=== PATIENT | male | born 1965 | race Caucasian/White ===

== ENCOUNTER → 2020-04-17 17:10 | Outpatient (CLI) | payer MEDICAID, SELFPAY ==
[2020-04-17 17:31] LABS: Basophils % 0.2 % (0.1-2.0); Eosinophils # 0.2 K/mm3 (0.0-0.4); Eosinophils % 1.6 % (0.1-12.0); Hematocrit 50.9 % (42.0-52.0); Hemoglobin 16.3 g/dL (14.1-18.0); Lymphocytes # 1.8 K/mm3 (0.7-4.5); Lymphocytes % 17.1 % (10-50); Mean Corpuscular Hemoglobin 29.6 pg (27.0-31.2); Mean Corpuscular Volume 92.6 fl (80-94); Mean Platelet Volume 8.3 fl (7.4-10.4); Monocytes # 0.7 K/mm3 (0.1-1.0); Monocytes % 6.9 % (1.7-9.3); Neutrophils % 74.2 % (37.0-80.0); Platelet Count 408 K/mm3 (142-424); Red Cell Distribution Width 13.1 % (11.5-17.5); White Blood Count 10.8 K/mm3 (4.8-10.8)
[2020-04-17 17:51] LABS: Chloride 101 mmol/L (98-107)
[2020-04-17 17:52] LABS: Potassium 4.3 mmoL/L (3.5-5.1); Sodium 138 mmol/L (136-145)
[2020-04-17 17:54] LABS: Alanine Aminotransferase 55 U/L (12-78); Alkaline Phosphatase 64 U/L (38-126); Aspartate Amino Transferase 42 U/L (17-59); Bilirubin,Total 0.4 mg/dl (0.2-1.3); Blood Urea Nitrogen 18 mg/dl (9-20); Estimated Glomerular Filt Rate 88 ml/min (>60); GFR (African American) 107 ML/MIN (>60)
[2020-04-17 17:55] LABS: Albumin Level 4.8 g/dl (3.5-5.0); Albumin/Globulin Ratio 1.5 (1.1-1.8); Anion Gap 16.3 mEq/L (5-15); Calcium 10.5 mg/dl (8.4-10.2); Carbon Dioxide 25 mmol/L (22.0-30.0); Globulin 3.1 g/dL (1.3-3.2); Glucose 104 mg/dl (74-100); Total Protein,Serum 7.9 g/dl (6.3-8.2)
== END ==
PROVIDERS: Visit Provider Family Medicine
DX: I10 Essential (primary) hypertension (principal)
CPT/HCPCS: 80053; 85025

== ENCOUNTER → 2021-06-09 10:02 | Outpatient (CLI) | payer OTHER, SELFPAY | PROVIDERS: PCP Family Medicine; Visit Provider Nurse Practitioner | DX: U07.1 COVID-19 (principal) | CPT/HCPCS: C9803; U0003; U0005 ==

== ENCOUNTER → 2022-07-15 11:00 | Outpatient (CLI) | payer OTHER, SELFPAY ==
[2022-07-15 15:05] LABS: Uric Acid 8.6 mg/dl (3.5-8.5)
== END ==
PROVIDERS: PCP Family Medicine; Visit Provider Family Medicine
DX: Z87.828 Personal history of other (healed) physical injury and trauma (principal); E79.0 Hyperuricemia without signs of inflammatory arthritis and tophaceous disease
CPT/HCPCS: 84550

== ENCOUNTER 2024-05-21 12:22 | Outpatient (CLI) | payer SELFPAY ==
[2024-05-21 19:05] LABS: Alanine Aminotransferase 38 U/L (12-78); Albumin Level 4.6 g/dl (3.5-5.0); Albumin/Globulin Ratio 1.8 (1.1-1.8); Alkaline Phosphatase 68 U/L (38-126); Aspartate Amino Transferase 36 U/L (17-59); Bilirubin,Total 0.7 mg/dl (0.2-1.3); Blood Urea Nitrogen 16 mg/dl (9-20); Calcium 9.9 mg/dl (8.4-10.2); Carbon Dioxide 26 mmol/L (22.0-30.0); Chloride 103 mmol/L (98-107); Chol/HDL Ratio 4.2 (1-3.5); Cholesterol 168 mg/dl (140-200); Estimated Glomerular Filt Rate 87 ml/min (>60); GFR (African American) 105 ML/MIN (>60); Globulin 2.6 g/dL (1.3-3.2); Glucose 97 mg/dl (74-100); HDL Cholesterol 40 mg/dl (40-60); Sodium 140 mmol/L (136-145); Total Protein,Serum 7.2 g/dl (6.3-8.2); Triglycerides 129 mg/dl (30-150); VLDL Cholesterol 26 mg/dL (0-40)
[2024-05-21 19:22] LABS: Direct LDL Cholesterol 107.81 mg/dL (100-129)
== END 2024-05-21 23:59 | disposition home or self-care (01) ==
LOC: LAB.DROPOF 05-22 08:47
PROVIDERS: PCP Family Medicine; Visit Provider Family Medicine
DX: I10 Essential (primary) hypertension (principal); M10.9 Gout, unspecified
CPT/HCPCS: 80053; 80061

== ENCOUNTER 2025-04-26 09:44 | Outpatient (CLI) | payer OTHER, SELFPAY ==
--- OUTSIDE RECORDS SUMMARY | 2018-12-01 08:51 | XMS_ITS | Continuity of Care Document ---
Author Organization [facility] Address [address] [place] [address] Phone Care Team Providers Care Thermostat Mechanic Name Role Phone Lisa Page PT Unavailable Unavailable Medications Medication Instructions Dosage Effective Dates (start - stop) Status Comments diclofenac sodium 75 mg tablet,delayed release take 1 tablet by oral route 2 times every day 75 MG - Active Pennsaid 20 mg/gram/actuation (2 %) topical soln in metered-dose pump apply 2 pump by topical route 2 times every day to the affected knee(s) 40 MG - Active Procedures Procedure Date Office/outpatient visit,est, mod 2018 Physical Tx excercises, ea 15 min Neuromuscular re-edu, ea15 min Physical Tx excercises, ea 15 min Neuromuscular re-edu, ea15 min Physical Tx excercises, ea 15 min Neuromuscular re-edu, ea15 min Physical Tx excercises, ea 15 min Neuromuscular re-edu, ea15 min Office/outpatient visit,est, mod 2018 Physical Tx excercises, ea 15 min Neuromuscular re-edu, ea15 min Physical Tx excercises, ea 15 min Neuromuscular re-edu, ea15 min Physical Tx excercises, ea 15 min Neuromuscular re-edu, ea15 min Physical Tx excercises, ea 15 min Neuromuscular re-edu, ea15 min 19 PT EVAL LOW COMPLEX 20 MIN Neuromuscular re-edu, ea15 min 19 DRAIN/INJ JOINT/BURSA W/US Dexamethasone sodium phos Office/outpatient visit,est, mod 2018 Ko elas w/ condyle pads & paulie MRI Lwr Ext Joint wo Contrast 9 Office/outpatient visit,new, [facility] 2018 X-ray exam of knee, 3 views Advance Directives Directive Yes / No Effective Date File Name No Information Encounters Encounter Description Practice Location Reason(s) For Visit Diagnoses Date Provider Providers Copied on Encounter [facility], [facility] [place], [place], [facility], tel:[phone] [facility] No Information 9 Camilo Gonzalez. [address], [place], [id number] , [place]. tel:[phone] Office/outpat ient visit,[facility], [facility], [facility] [place], [place], [facility], tel:[phone] [facility] No Information 9 Verona De Jesus. [address] [place], [place], [id number] . tel:[phone] [facility], [address] [place] [address], [facility], tel:[phone] [facility] No Information 9 Linwood Lisa. [address], [place], [id number] , [place]. tel:[phone] Referring Provider: Nael Rice, [facility] [place], [address] . tel:[phone] [facility], [address] [place] [address], [facility], tel:[phone] [facility] No Information 9 Camilochristina Beattyisten. [address], [facility] [place] [id number] , [place]. tel:[phone] Referring Provider: Neal Rice, [address], [place], [address] . tel:[phone] [facility], [address], [place], [place], [facility], [place] tel:[phone] [facility] No Information 9 Camilo Isabelen. [address], [facility] [place] [id number] , [place]. tel:[phone] Referring Provider: Neal Rice, [address], [facility] [place], [address] . tel:[phone] [facility], [address], [place], [place], [facility], [place] tel:[phone] [facility] No Information 9 Camilo Isabelen. [address], [facility] [place], [id number] , [place]. tel:[phone] Referring Provider: Neal Rice, [address], [facility] [place], [address] . tel:[phone] Office/outpat ient visit,est, mod [facility], [address], [place], [place], [facility], [place] tel:[phone] [facility] No Information 9 Verona De Jesus. [address], [facility], [place], [id number] . tel:[phone] [facility], [address], [place], [place], [facility], [place] tel:[phone] [facility] No Information 9 Camilo Lisa. [address], [place], [place], [id number] , [place]. tel: [phone] Referring Provider: Neal Rice, [address], [place], [address] . tel:[phone] [facility], [address], [place], [address], [place] tel:[phone] [facility] No Information Sep-0 9-201 9 Camilo Lisa. [address], [facility] [place] [id number] , [place]. tel:[phone] Referring Provider: Neal Rice, [address], [place], [address] . tel:[phone] [facility], [address], [place], [address], [place] tel:[phone] [facility] No Information Sep-0 4-201 9 Camilo Lisa. [address], [facility] [place] [id number] , [place]. tel:[phone] Referring Provider: Neal Rice, [address], [place], [address] . tel:[phone] [facility], [address], [place], [address], [place] tel:[phone] [facility] No Information Sep-0 2-201 9 Linwood Lisa. [address], [facility] [place] [id number] , [place]. tel:[phone] Referring Provider: Neal Rhoades Krystal, [address], [place], [address] . tel:[phone] [facility], [address], [place], [address], [place] tel:[phone] [facility] No Information Aug-2 5-201 9 Camilo Lisa. [address], [facility] [place] [id number] , [place]. tel:[phone] Referring Provider: Neal Rice, [address], [place], [address] . tel:[phone] [facility], [address], [place], [address], [place] tel:[phone] [facility] No Information 9 Verona Neal. [address], [facility] [place], [id number] . tel:[phone] [facility], [facility] [address], [place], [address], [place] tel:[phone] [facility] No Information 9 Fernanda Patricia. [address] [facility], [facility], [place], [place], [id number] , [place]. tel:[phone] Office/outpat ient visit,est, mod [facility], [facility] [address], [place], [place], [facility], tel:[phone] [facility] No Information 0 9 Verona Neal. [address], [facility] [place], [id number] . tel:[phone] [facility], [facility] [address], [place], [place], [facility], tel:[phone] [facility] No Information 9 Verona Neal. [address], [place], [place], [id number] . tel:[phone] [facility], [facility] [address], [place], [place], [facility], [place] tel:[phone] [facility] No Information 9 Verona Neal. [address], [facility] [place], [address] . tel:[phone] Referring Provider: Neal Rice, [address], [facility] [place], [address] . tel:[phone] Office/outpat ient visit,new, mod [facility], [address] [place], [address], [place] tel:[phone] [facility] No Information 9 Verona De Jesus. [address] [facility] [place], [place], [id number] . tel:[phone] Referring Provider: Parish Winslow, [facility] [address] , [place], [address] . tel:[phone] Family History Family Member Type Diagnosis Age At Onset No Information Payers Payer name Insurance type Covered alliance party ID Authoriza tion(s) [facility] [facility] [id number] Social History Type Description Quantity Date Captured Comments Sex Male Smoking Status No Information Chief Complaint And Reason For Visit No Information Reason For Referral Reason For Referral No Information Plan Of Treatment Date Type Action Status Future Order: Radiology Order MR I Knee WO Contrast ([id number]), Collected on: , Sent on: Sent History Of Present Illness Encounter Date Complaint History Of Prese nt Illness No Information Functional Status Date Functional Assessmen t No Information Instructions Date Instruction Additional Infor mation No Information Assessments Type Assessment Date No Information Patient Care Teams Name Effective Dates (start - stop) Status Members No Information
[2025-04-26 14:39] LABS: Hematocrit 43.4 % (42.0-52.0); Hemoglobin 14.1 g/dL (14.1-18.0); Immature Granulocytes % 0.4 %; Mean Corpuscular HGB Conc 32.5 g/dL (31.8-35.4); Mean Corpuscular Hemoglobin 29.6 pg (27.0-31.2); Mean Corpuscular Volume 91.2 fl (80-94); Nucleated Red Blood Cells % 0 %; Platelet Count 362 K/mm3 (142-424); Red Blood Count 4.76 M/mm3 (4.60-6.20); Red Cell Distribution Width-SD 43.1 fL; White Blood Count 9.1 K/mm3 (4.8-10.8)
[2025-04-26 14:57] LABS: Hemoglobin A1C 6.8 % (4.0-6.0)
[2025-04-26 15:51] LABS: Albumin Level 4.9 g/dl (3.5-5.0); Chloride 104 mmol/L (98-107); Potassium 4.0 mmoL/L (3.5-5.1); Sodium 136 mmol/L (136-145)
[2025-04-26 15:54] LABS: Alanine Aminotransferase 64 U/L (12-78); Alkaline Phosphatase 66 U/L (38-126); Anion Gap 10.0 mEq/L (5-15); Aspartate Amino Transferase 48 U/L (17-59); Bilirubin,Total 0.4 mg/dl (0.2-1.3); Carbon Dioxide 26 mmol/L (22.0-30.0)
[2025-04-26 15:55] LABS: Albumin/Globulin Ratio 2.2 (1.1-1.8); Calcium 9.0 mg/dl (8.4-10.2); Cholesterol 165 mg/dl (140-200); Globulin 2.2 g/dL (1.3-3.2); Glucose 128 mg/dl (74-100); HDL Cholesterol 37 mg/dl (40-60); Total Protein,Serum 7.1 g/dl (6.3-8.2); Triglycerides 184 mg/dl (30-150)
[2025-04-26 16:17] LABS: Blood Urea Nitrogen 15 mg/dl (9-20); Creatinine,Serum 0.90 mg/dl (0.66-1.25); Estimated Glomerular Filt Rate 87 ml/min (>60); GFR (African American) 105 ML/MIN (>60)
[2025-04-26 16:45] LABS: Hepatitis C Ab Qual. W/ RFX NEGATIVE (Negative)
--- OUTSIDE RECORDS SUMMARY | 2025-04-29 09:54 | XMS_ITS | Encounter Summary ---
Author Organization [facility] Address [address] [place] [address] Care Team Providers Care Vessel Scrapper Helper Name Role Phone Zabrina Mclaughlin NP Primary Care Provider [phone] None, None Primary Care Provider UnavailParish Clark MD Primary Care Provider [phone] Jodi Houston NP Unavailable [phone] Dominick Still MD Unavailable [phone] Alen Monreal NP Unavailable [phone] Reason for Visit * Reason Onset Date Comments Orders Needed 01/31/2017 Routine labs Encounter Details Date Type Department Care Team (Late st Contact Info) Description 01/31/2017 Telephone [facility] - Primary Care, [place] [address] [place] [address] [place] [address] Orders Needed (Routine labs ) Social History Tobacco Use Types Packs/Day Years Used Date Smoking Tobacco: Never Smokeless Tobacco: Never Alcohol Use Standard Drinks/Week Comments No 0 (1 standard drink = 0.6 oz pur e alcohol) Sex and Gender Information Value Date Recorded Sex Assigned at Not on file Legal Sex Male 8:20 PM EST Gender Identity Not on file Sexual Orientation Not on file documented as of this encounter Miscellaneous Notes * Telephone Encounter - Vasu Monreal MD - 01/31/2017 5:24 PM EDT Done. * Telephone Encounter - Natalia Rizzo - 01/31/2017 3:32 PM EDT PE in March, needs routine lab orders, Pt aware of fasting documented in this encounter Plan of Treatment Not on file documented as of this encounter Visit Diagnoses Diagnosis PE (physical exam), annual- Primary Routine general medical examination at a health care facility Borderline hyperlipidemia Other and unspecified hyperlipidemia Family history of diabetes mellitus documented in this encounter Care Teams Vessel Scrapper Helper Relationship Specialty Start Date End Date Zabrina Mclaughlin NP [address] [facility] [place] [address] [place] [address] PCP - General Nurse Practitioner, Family 05/16/19 10/23/20 None, None [address] [place] [address] PCP - General 10/24/20 06/21/22 [place] [address] [place] [address] PCP - General Family Medicine 06/22/22 Jodi Houston NP [address] [place] [address] Nurse Practitioner Nurse Practitioner, Adult Health 06/29/22 Dominick Still MD [address] [facility] [place] [address] General Surgery 07/04/22 Alen Monreal NP [address] [place] [address] General Surgery 07/06/22 documented as of this encounter
--- OUTSIDE RECORDS SUMMARY | 2025-04-29 09:54 | XMS_ITS | Clinical Summary ---
Author Organization [facility] Address [address] [place] [address] Care Team Providers Care Top Collar Maker Name Role Phone Parish Winslow MD Primary Care Provider [phone] Jodi Houston NP Unavailable [phone] Dominick Still MD Unavailable [phone] Alen Monreal NP Unavailable [phone] Allergies No known active allergies Medications ondansetron (ZOFRAN) 4 mg tablet Take 1 Tablet (4 mg) by mouth every 6 hours as needed for Nausea or Vomiting. 10 Tablet 3 Active Amlodipine-Lauren zepril (LOTREL) 10-20 mg per capsule TAKE 1 CAPSULE BY MOUTH EVERY DAY. MUST MAKE AN APPOINTMENT FOR FOLLOW UP BEFORE ANYMORE REFILLS. 2 Active cyclobenzaprine (FLEXERIL) 10 mg tablet TAKE 1 TABLET BY MOUTH TWO TIMES A DAY NEEDED FOR MUSCLE SPASM 2 Active hydroCHLOROthia zide (HYDRODIURIL) 12.5 mg Tablet Take by mouth daily. 2 Active Active Problems Problem Noted Date Diagnosed Date Perforated appendicitis 06/24/2022 Appendicitis 06/22/2022 Lung nodules 10/13/2012 Lung nodule 10/02/2012 Mediastinal adenopathy 10/02/2012 Pleuritic chest pain 10/02/2012 Morbid obesity 10/02/2012 JONNA (obstructive sleep apnea) 10/02/2012 Pleurisy Overview (09/17/2016): Replaced inactive diagnosis term via diagnosis import Pleurisy Overview (09/17/2016): Replaced inactive diagnosis term via diagnosis import Immunizations Immunization Administration Dates Next Due Td 09/02/1996 Family History Medical History Relation Name Comments Heart Problems Father Relation Name Status Comments Brother Alive Daughter 1 Alive Daughter 2 Alive Father Mother Alive Son Alive Social History Tobacco Use Types Packs/Day Years Used Date Smoking Tobacco: Never Smokeless Tobacco: Never Tobacco Cessation:Counseling Given: Yes Alcohol Use Standard Drinks/Week Comments No 0 (1 standard drink = 0.6 oz pur e alcohol) Sex and Gender Information Value Date Recorded Sex Assigned at Not on file Legal Sex Male 8:20 PM EST Gender Identity Not on file Sexual Orientation Not on file Last Filed Vital Signs Vital Sign Reading Time Taken Comments Blood Pressure 139/74 06/29/2022 12:15 PM EST Pulse 72 06/29/2022 12:15 PM EST Temperature 37.2 C (98.9 F) 06/29/2022 12:15 PM EST Respiratory Rate 14 07/13/2022 8:48 AM EST Oxygen Saturation 97% 06/29/2022 12: 15 PM EST Inhaled Oxygen Concentration - - Weight 136.1 kg (300 lb 0.7 oz) 07/13/2022 8:48 AM EST Height 182.9 cm (6') 07/13/2022 8:48 AM EST Body Mass Index 40.69 07/13/2022 8:48 AM EST Plan of Treatment Health Maintenance Due Date Last Done Comments Cologuard 1966 Colonoscopy 1966 Colorectal Cancer Screening 1966 FIT 1966 Tetanus Vaccination (Every 10 Years) 09/02/2006/02/1997 Pneumococcal Vaccine: 50+ Ye ars (1 of 1 - PCV) 2016 Zoster-RZV(Shingrix) (1 of 2) 2016 Lipid Screening 04/14/2020 04/14/2015, 03/28, 08/24/2013 Depression Screening 06/27/2024 COVID-19 Vaccine ( season) 2025 Influenza Vaccination (#1) 2025 Procedures Procedure Name Priority Date/Time Associated Diagnosis Comments LIPID PROFILE Routine 04/14/2015 1:24 PM EDT Routine general medical examination at a health care facility Essential hypertension, malignant from Last 3 Months or Most Recently Relevant to Health Maintenance Results * (ABNORMAL) LIPID PROFILE (04/14/2015 1:24 PM EDT) Chol/HDL Ratio 4.8 0 - 5 TC E XTERNAL LAB Cholesterol 190 125 - 199 mg/dL [facility] Comment: TOTAL CHOLESTEROL INTERPRETATION: Less than 200 mg/dL Desireable 200-239 mg/dL Borderline Greater or Equal to 240 mg/dL High LDL Calculated 128(H) 0 - 100 mg/dL [facility] Comment: LDL CHOLESTEROL INTERPRETATION: Less than 100 mg/dL Optimal 100-129 mg/dL Near optimal/above optimal 130-159 mg/dL Borderline High 160-189 mg/dL High Greater or Equal to 190 mg/dL Very High HDL 40 40 - 180 mg/dL [facility] Comment: HDL CHOLESTEROL INTERPRETATION: Less than 40 mg/dL Low Greater than 60 mg/dL Desirable Triglycerides 111 0 - 150 mg/dL [facility] Comment: TOTAL TRIGLYCERIDE INTERPRETATION: Less than 150 mg/dL Normal 150-199 mg/dL Borderline HIgh 200-499 mg/dL High Greater or Equal to 500 mg/dL Very High Plasma 04/14/2015 1:24 PM EDT 04/14/2015 8:18 PM EDT Narrative [facility] - 04/14/2015 9:00 PM EDT Has the patient fasted?->Yes us Vasu Monreal MD CHEMISTRY ORDERABLES Final Res ult [facility] [address] from Last 3 Months or Most Recently Relevant to Health Maintenance Insurance [facility] Advance Directives For more information, please contact: [phone] * Full Code (Latest Code Status on File) Date Activated Date Inactivated Comments 06/22/2022 4:48 PM No automated chest compression devices for VAD Patients Care Teams Top Collar Maker Relationship Specialty [place] [address] [place] [id number] PCP - General Family Medicine 06/22/22 Jodi Houston NP [address] [facility]. [place], [place] [address] Nurse Practitioner Nurse Practitioner, Adult Health 06/29/22 Dominick Still MD [address] [facility]. [address] [place], [place] [address] General Surgery 07/04/22 Alen Monreal NP [address] [place] [address] [address] [place] [address] General Surgery 07/06/22
--- OUTSIDE RECORDS SUMMARY | 2025-04-29 09:54 | XMS_ITS ---
Author Organization Unknown TREATMENT PLAN [facility] Start Date Provider Encounter for Check-up [phone] [facility]
--- OUTSIDE RECORDS SUMMARY | 2025-04-29 09:54 | XMS_ITS | Clinical Summary ---
Author Organization [facility] Address [address] [place] [address] Care Team Providers Care Bakery And Deli Sales Manager Name Role Phone Vasu Monreal MD Primary Care Provider [phone] Source Comments This information has been disclosed to you from confidential records protectedfrom disclosure by state law. You shall make no further disclosure of thisinformation without the specific, written, and informed release of theindividual to whom it pertains, or as otherwise permitted by law. A generalauthorization for the release of medical or other information is not sufficientfor the purposes of therelease of HIV test results or diagnoses. [id number] Allergies Active Allergy Reactions Criticality Noted Date Comments No Known Drug Allergies 05/08/2015 Medications lisinopril-hydro chlorothiazide (PRINZIDE,ZESTOR ETIC) 10-12.5 mg per tablet Take by mouth. 04/14/2015 Active Active Problems No known active problems Family History Medical History Relation Comments Melanoma Neg Hx Social History Tobacco Use Types Packs/Day Years Used Date Smoking Tobacco: Never Smokeless Tobacco: Never Alcohol Use Standard Drinks/Week Comments No 0 (1 standard drink = 0.6 oz pur e alcohol) Sex and Gender Information Value Date Recorded Sex Assigned at Not on file Legal Sex Male 6:43 PM EST Gender Identity Not on file Sexual Orientation Not on file Last Filed Vital Signs Vital Sign Reading Time Taken Comments Blood Pressure - - Pulse - - Temperature - - Respiratory Rate - - Oxygen Saturation - - Inhaled Oxygen Concentration - - Weight 112.5 kg (248 lb) 05/08/2015 1:29 PM EST Height 182.9 cm (6') 05/08/2015 1:29 PM EST Body Mass Index 33.63 05/08/2015 1:29 PM EST Plan of Treatment Not on file Care Teams Bakery And Deli Sales Manager Relationship Specialty Start Date End Date Vasu Monreal MD PCP - General Family Medicine 04/14/15
[2025-04-30 04:14] LABS: Hepatitis B Surface Antigen Negative (Negative)
== END 2025-04-26 23:59 | disposition home or self-care (01) ==
LOC: LAB.DROPOF 04-29 09:44
PROVIDERS: PCP Family Medicine; Visit Provider Family Medicine
DX: I10 Essential (primary) hypertension (principal); Z12.11 Encounter for screening for malignant neoplasm of colon; R73.09 Other abnormal glucose; Z11.59 Encounter for screening for other viral diseases; Z12.5 Encounter for screening for malignant neoplasm of prostate
CPT/HCPCS: 80053; 80061; 83036; 85025; 86803; 87340; 87389; G0103